=== PATIENT | male | born 1980 | race Caucasian/White ===

== ENCOUNTER 2019-04-13 18:49 | Emergency (ER) | payer BC ==
[2019-04-13 18:55] VITALS: BP 144/94; PULSE 87; TEMP 98.4; BMI 31.4
[2019-04-13] MEDS ORDERED: DOXYCYCLINE HYCLATE 100 MG CAPSULE PO ONE ×2 (19:07→19:22)
--- NOTE | 2019-04-13 19:13 | PDOC ---
History of Present Illness - General Chief Complaint: Bite Stated Complaint: TICK BITE Time Seen by Provider: 04/13/19 18:56 History Source: Patient Exam Limitations: Clinical Condition - History of Present Illness Initial Comments: 04/13/19 19:07 Patient with no significant past medical history present with complaint of tick bite to right lateral thigh area which he found today. Patient report did not have any bites yesterday and found take today which he removed. Denies any other symptoms Timing/Duration: reports: just prior to arrival Past History - Past Medical History Allergies/Adverse Reactions: Allergies Allergy/AdvReac Type Severity Reaction Status Date / Time No Known Drug Allergies Allergy Verified 04/13/19 18:54 Home Medications: Ambulatory Orders NK [No Known Home Medication] 02/10/16 Anemia: No Asthma: No Cancer: No Cardiac Disorders: No CVA: No COPD: No CHF: No Dementia: No Diabetes: No GI Disorders: No Disorders: No HTN: No Hypercholesterolemia: No Liver Disease: No Seizures: No Thyroid Disease: No - Surgical History Abdominal Surgery: No Appendectomy: No Cardiac Surgery: No Cholecystectomy: No Lung Surgery: No Neurologic Surgery: No Orthopedic Surgery: Yes (LEFT HAND REPAIR OF TENDON 2013) - Suicide/Smoking/Psychosocial Hx Smoking Status: No Smoking History: Never smoked Have you smoked in the past 12 months: No Number of Cigarettes Smoked Daily: 0 Information on smoking cessation initiated: No Hx Alcohol Use: Yes (OCCASIONAL) Drug/Substance Use Hx: No Substance Use Type: None, Alcohol Hx Substance Use Treatment: No Review of Systems - Review of Systems Able to Perform ROS?: Yes Is the patient limited [place] proficient: No Constitutional: No: Fever, Malaise, Weakness HEENTM: No: Symptoms Reported Respiratory: No: Symptoms reported Cardiac (ROS): No: Symptoms Reported ABD/GI: No: Nausea, Vomiting Musculoskeletal: Yes: Symptoms Reported. No: Joint Pain, Muscle Pain Integumentary: Yes: Symptoms Reported, Other (tick bite to lateral thigh) Neurological: No: Numbness, Paresthesia, Tingling All Other Systems: Reviewed and Negative *Physical Exam - Vital Signs Last Vital Signs Temp Pulse Resp BP Pulse Ox 98.4 F 87 18 144/94 100 04/13/19 18:52 04/13/19 18:52 04/13/19 18:52 04/13/19 18:52 04/13/19 18:52 - Physical Exam General Appearance: Yes: Nourished, Appropriately Dressed. No: Apparent Distress HEENT: positive: Normal ENT Inspection Neck: positive: Supple Respiratory/Chest: negative: Respiratory Distress, Accessory Muscle Use Musculoskeletal: positive: Normal Inspection Extremity: positive: Normal Capillary Refill, Normal Inspection, Other (small tiny bite wound to lateral aspect of right thigh) Integumentary: positive: Normal Color Neurologic: positive: Fully Oriented, Alert, Normal Mood/Affect, Normal Response , Motor Strength /5 Medical Decision Making - Medical Decision Making 04/13/19 19:12 Patient with no medical history present with complaint of tick bite to right lateral thigh area since this morning. Patient reported removing take from skin. Patient did not bring take with. Patient reported no symptoms. Exam significant for tiny superficial bites wound to lateral aspect of right thigh. Patient be treated prophylactically for with doxycycline 20 mg by mouth for Lyme prophylaxis. Patient is stable for discharge *DC/Admit/Observation/Transfer Diagnosis at time of Disposition: Tick bite of right thigh Qualifiers: Encounter type: initial encounter Qualified Code(s): S70.361A - Insect bite ( nonvenomous), right thigh, initial encounter; W57.XXXA - Bitten or stung by nonvenomous insect and other nonvenomous arthropods, initial encounter - Discharge Dispostion Disposition: HOME Condition at time of disposition: Stable Decision to Admit order: No - Referrals - Patient Instructions Printed Discharge Instructions: How to Care for an Insect Bite or Sting, DI for Lyme Disease Additional Instructions: Apply bacitracin to wound twice a day on to healed. Apply warm compresses to area as needed if swelling. - Post Discharge Activity
== END 2019-04-13 19:25 | disposition home or self-care (01) ==
LOC: JERFT 18:49
DX: S70.361A Insect bite (nonvenomous), right thigh, initial encounter (principal); W57.XXXA Bitten or stung by nonvenomous insect and other nonvenomous arthropods, initial encounter; Y93.89 Activity, other specified; Y92.018 Other place in single-family (private) house as the place of occurrence of the external cause; Y99.8 Other external cause status
CPT/HCPCS: 99281-25

== ENCOUNTER 2021-11-16 13:58 | Emergency (ER) | payer BC ==
[2021-11-16 14:05] VITALS: TEMP 98.8; BMI 32.5
[2021-11-16 15:06] LABS: EOS % 1.5 % (0-4.5); HEMATOCRIT 37.2 % (35.4-49); HEMOGLOBIN 12.5 GM/dL (11.7-16.9); LYMPH % 42.2 % (8-40); MCH 29.8 pg (25.7-33.7); MCHC 33.5 g/dl (32.0-35.9); MEAN PLT VOLUME 8.4 fl (7.5-11.1); MONO % 8.6 % (3.8-10.2); NEUT % 46.7 % (42.8-82.8); PLATELET COUNT 228 10^3/uL (134-434); RBC 4.18 M/mm3 (4.00-5.60); RDW 13.9 % (11.9-15.9); WHITE BLOOD COUNT 3.9 K/mm3 (4.0-10.0)
[2021-11-16] MEDS ORDERED: ACETAMINOPHEN 1000 MG/100 ML BAG IVPB ONE (15:34)
[2021-11-16] MEDS ORDERED: FAMOTIDINE 20 MG/50 ML IVPB 20 MG/50 ML MG IVPB ONE ×2 (15:34→15:42)
[2021-11-16 16:43] VITALS: BP 130/88; PULSE 70
== END 2021-11-16 16:45 | disposition home or self-care (01) ==
LOC: FER 13:58
PROC: 3E033GC Introduction of Other Therapeutic Substance into Peripheral Vein, Percutaneous Approach (ICD-10-PCS; principal; 2021-11-16)
DX: R07.89 Other chest pain (principal)
CPT/HCPCS: 36415; 71045-TC-FY; 82550; 84484; 85025; 85379; 93005; 99285-25

== ENCOUNTER 2024-07-20 06:12 | Day surgery (SDC) | payer BC ==
[2024-07-18 09:26] VITALS: BMI 32.8
[2024-07-20] MEDS ORDERED: EPINEPHrine 1:1,000 1,000 MCG/ML ML ONE (07:25)
[2024-07-20] MEDS ORDERED: BUPIVACAINE HCL/PF 0.25% (2.5MG/ML) 10 ML VIAL ONE (07:25)
[2024-07-20] MEDS ORDERED: PROPOFOL 40 ML ONE (07:32)
[2024-07-20] MEDS ORDERED: MIDAZOLAM HCL 2 MG/2 ML SINGLE DOSE VIAL ONE (07:34)
[2024-07-20] MEDS ORDERED: SUCCINYLCHOLINE CHLORIDE 200 MG/10 ML SYRINGE ONE (07:34)
[2024-07-20] MEDS ORDERED: TRANEXAMIC ACID 1000 MG/10 ML VIAL ONE (07:59)
[2024-07-20] MEDS ORDERED: ONDANSETRON 4 MG/2 ML VIAL IVPUSH PRN (09:13)
[2024-07-20] MEDS ORDERED: oxyCODONE HCL 5 MG TABLET PO PRN (09:13)
[2024-07-20] MEDS ORDERED: LACTATED RINGERS SOLUTION 1,000 ML IV SCH (09:15)
[2024-07-20] MEDS ORDERED: DEXAMETHASONE SOD PHOSPHATE 4 MG/1 ML VIAL ONE (09:24)
[2024-07-20] MEDS ORDERED: FENTANYL CITRATE/PF 50 MCG/ML VIAL ONE (10:05)
[2024-07-20] MEDS: oxyCODONE HCL 5 MG TABLET PO PRN (10:49)
[2024-07-20] MEDS ORDERED: oxyCODONE HCL 10 MG SUSTAINED ACTING TABLET ONE (10:53)
[2024-07-20 11:25] VITALS: BP 119/69; PULSE 77; TEMP 98
[2024-07-20 11:51] VITALS: RESP 18
== END 2024-07-20 11:45 | disposition home or self-care (01) ==
LOC: FASU 06:12
PROVIDERS: ATTEND Orthopaedic Surgery Sports Medicine
PROC: 0SBD4ZX Excision of Left Knee Joint, Percutaneous Endoscopic Approach, Diagnostic (ICD-10-PCS; principal; 2024-07-20 08:06)
DX: M12.262 Villonodular synovitis (pigmented), left knee (principal)
CPT/HCPCS: 87070; 87205; 88305-TC; 94760